=== PATIENT | male | born 1950 | race African-American/Black ===

== ENCOUNTER 2018-12-22 16:39 | Inpatient (IN) | payer MEDICARE ==
[~2018-12-22] VITALS: Ht 175.3 cm; Wt 81.6 kg
[~2018-12-22 16:39] MED LIST: ALBU6.7H9 INH; ASPI-1159 PO; ATOR-2 PO; CARV12.545 PO; IBUP-2030 PO; LIRA0.6P SQ; LOSA50TA20 PO; OMEP20CA10 PO; POTA10CA42 PO
[2018-12-22] MEDS ORDERED: ASPIRIN 81MG TABLET PO ONE (17:30)
[2018-12-22 17:38] LABS: BASOPHILS % 0.5 % (0.0-2.0); EOSINOPHILS % 3.7 % (0.0-5.0); HEMATOCRIT. 30.1 % (42.0-52.0); HEMOGLOBIN. 10.4 g/dL (14.0-18.0); LYMPHOCYTES % 35.9 % (20.0-50.0); MEAN CORPUSCULAR HEMOGLOBIN 31.1 pg (28.0-32.0); MEAN CORPUSCULAR VOLUME 89.7 fL (80.0-94.0); MEAN PLATELET VOLUME 8.5 fl (7.4-10.4); MONOCYTES % 10.4 % (2.0-8.0); NEUTROPHILS % 49.5 % (40.0-76.0); PLATELET 218 x1000/uL (130-400); RED BLOOD CELL COUNT 3.36 mill/uL (4.7-6.1); RED CELL DISTRIBUTION WIDTH 15.9 % (11.6-14.6)
[2018-12-22 17:39] LABS: CHLORIDE 111 mEq/L (98-107)
[2018-12-22] MEDS ORDERED: MORPHINE SULFATE 4 MG/ML CPJ (NOT FOR IM USE) IV ONE (17:45)
[2018-12-22] MEDS ORDERED: NITROGLYCERIN 0.4MG TABLET SL SL ONE (20:30)
[2018-12-22 23:25] VITALS: BP 141/70
[2018-12-23] MEDS ORDERED: TEMAZEPAM 15MG CAPSULE PO PRN (00:30)
[2018-12-23] MEDS ORDERED: ONDANSETRON HCL 4MG/2ML INJ IV PRN (00:30)
[2018-12-23] MEDS ORDERED: ACETAMINOPHEN 325MG TABLET PO PRN (00:30)
[2018-12-23] MEDS ORDERED: MORPHINE SULFATE 2 MG/ML CPJ (NOT FOR IM USE) IV PRN (00:30)
[2018-12-23] MEDS ORDERED: DEXTROSE 50% WATER 50ML SYRINGE IV PRN (00:30)
[2018-12-23 01:21] LABS: CREATINE KINASE 87 IU/L (39-308)
[2018-12-23 01:22] LABS: CREATINE KINASE MB FRACTION < 1.0 ng/mL (0.5-3.6)
[2018-12-23 04:00] VITALS: BP 123/72
[2018-12-23] MEDS: BLOOD SUGAR DIAGNOSTIC STRIP TEST SCH ×3 (06:03→17:10)
[2018-12-23] MEDS: INSULIN LISPRO 100 UNITS/ML SUBCUT SCH ×3 (06:03→17:40)
[2018-12-23] MEDS: OMEPRAZOLE 20MG CAPSULE EXTENDED RELEASE PO SCH ×2 (06:10→18:07)
[2018-12-23 08:00] VITALS: BP 156/78
[2018-12-23] MEDS ORDERED: ENOXAPARIN 40MG/0.4ML SYR SUBCUT SCH ×2 (09:00→11:45)
[2018-12-23] MEDS ORDERED: ASPIRIN 81MG TABLET PO SCH (09:00)
[2018-12-23] MEDS ORDERED: NITROGLYCERIN OINT 1GM/INCH UDPKT TD SCH (09:00)
[2018-12-23] MEDS ORDERED: LOSARTAN POTASSIUM 50 MG TABLET PO SCH (09:00)
[2018-12-23] MEDS ORDERED: CARVEDILOL 12.5MG TABLET PO SCH (11:00)
[2018-12-23] MEDS ORDERED: CLONIDINE 0.2MG TABLET PO PRN (11:00)
[2018-12-23] MEDS ORDERED: SPIRONOLACTONE 25MG TABLET PO SCH (11:00)
[2018-12-23] MEDS ORDERED: CLONIDINE 0.1MG TABLET PO PRN (11:45)
[2018-12-23 11:54] LABS: HEMATOCRIT 32.9 % (42.0-52.0); HEMOGLOBIN 11.2 g/dL (14.0-18.0); MEAN CORPUSCULAR HEMOGLOBIN 30.7 pg (28.0-32.0); MEAN CORPUSCULAR VOLUME 90.3 fL (80.0-94.0); PLATELET 238 x1000/uL (130-400); RED BLOOD CELL COUNT 3.64 mill/uL (4.7-6.1); RED CELL DISTRIBUTION WIDTH 16.2 % (11.6-14.6)
[2018-12-23 11:59] LABS: CHLORIDE 111 mEq/L (98-107)
[2018-12-23 12:05] LABS: PROTHROMBIN TIME 10.2 sec (9.6-11.0)
[2018-12-23 12:31] VITALS: BP 147/86
[2018-12-23] MEDS: NITROGLYCERIN OINT 1GM/INCH UDPKT TD SCH ×2 (12:57→18:07)
[2018-12-23] MEDS ORDERED: POTASSIUM CHLORIDE 20MEQ TABLET SR PO NR (15:30)
[2018-12-23 17:05] LABS: CREATINE KINASE 91 IU/L (39-308)
[2018-12-23 17:06] LABS: CREATINE KINASE MB FRACTION < 1.0 ng/mL (0.5-3.6)
[2018-12-23 17:28] LABS: BG BASE EXCESS -1.3 mmol/L (-2.0-2.0); BG CARBOXYHEMOGLOBIN 0.3 % (0.5-1.5); BG FRACTION INSPIRED OXYGEN 28; BG HCO3 ACT 22.9 mmol/L (22.0-26.0); BG METHEMOGLOBIN 0.2 % (0.0-1.5); BG OXYHEMOGLOBIN 97.5 % (94.0-97.0); BG PCO2 36.4 mmHg (35.0-45.0); BG PH 7.417 (7.350-7.450); BG PO2 130.1 mmHg (75.0-100.0); BG SAMPLE SITE RIGHT BRACHIAL; BG TOTAL HEMOGLOBIN 10.6 g/dL (12.0-18.0); BG VENT MODE NASAL CANNULA
[2018-12-23 18:54] VITALS: BP 149/79
[2018-12-23] MEDS ORDERED: ATORVASTATIN CALCIUM 40MG TABLET PO SCH (21:00)
[2018-12-23] MEDS ORDERED: ENOXAPARIN 80MG/0.8ML SYR SUBCUT SCH (21:00)
== END 2018-12-23 20:05 | disposition short-term general hospital (02) | DRG 302 ==
LOC: ER 17:11 → 8WST 19:36 → EDBEDREQ 19:38 → EDBEDREQTM 19:38 → ENRESERV 22:11
PROVIDERS: ADMIT Internal Medicine; ATTEND Internal Medicine
DX: I25.110 Atherosclerotic heart disease of native coronary artery with unstable angina pectoris (principal); I50.23 Acute on chronic systolic (congestive) heart failure; I11.0 Hypertensive heart disease with heart failure; G90.8 Other disorders of autonomic nervous system; D64.9 Anemia, unspecified; E11.65 Type 2 diabetes mellitus with hyperglycemia; R00.1 Bradycardia, unspecified; E78.5 Hyperlipidemia, unspecified; E87.6 Hypokalemia; I25.5 Ischemic cardiomyopathy; Z79.4 Long term (current) use of insulin; Z95.1 Presence of aortocoronary bypass graft; Z79.51 Long term (current) use of inhaled steroids; Z79.82 Long term (current) use of aspirin
CPT/HCPCS: 36415; 36600; 71045; 80048; 82375; 82550; 82553; 82805; 82962; 83036; 83735; 83880; 84484; 85027; 93005; 93306; 99285; J1650; J2270